=== PATIENT | female | born 1960 | race Caucasian/White ===

== ENCOUNTER 2020-05-28 11:18 | Outpatient (CLI) | payer BC, SELFPAY ==
--- NOTE | ~2020-05-28 | XR_ITS ---
XR finger 1st LT min 2V 05/28/2020 11:56 Indication: Bilateral first finger pain. No recent trauma. Procedure: 4 views of each first finger Comparison: No prior studies for comparison. Findings: There is symmetric osteoarthritis of the first CMC and MCP joints. Small loose bodies or ad jacent to the interphalangeal joints bilaterally. No significant soft tissue abnormality. No acute fr acture or traumatic malalignment. 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 Reviewed, dictated and finalized at location A. 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
--- NOTE | ~2020-05-28 | XR_ITS ---
EXAMINATION: XR finger 1st RT min 2V EXAM DATE: 05/28/2020 11:57 INDICATION: No known recent injury provided at this time. Pain of the right 1st finger. TECHNIQUE: Right 1st finger frontal, lateral and oblique projections obtained and reviewed. There is no prior study for comparison. FINDINGS: There is mild to moderate right 1st carpometacarpal, mild interphalangeal primary osteoarth ritis. There are no bony erosions identified. There are no acute fractures or dislocations identifie d. There is no subcutaneous gas. The soft tissue is unremarkable. There are no radiopaque foreign bodies. IMPRESSION: Mild to moderate right 1st carpometacarpal, mild interphalangeal osteoarthritis. Reviewed, dictated and finalized at location B. IMPRESSION: Mild to moderate right 1st carpometacarpal, mild interphalangeal os teoarthritis.
== END 2020-05-28 11:19 | disposition home or self-care (01) ==
PROVIDERS: PCP Family Medicine; Visit Provider Physician Assistant
DX: M19.041 Primary osteoarthritis, right hand (principal); M19.042 Primary osteoarthritis, left hand
CPT/HCPCS: 73140

== ENCOUNTER 2020-06-26 03:36 | Outpatient (CLI) | payer BC, SELFPAY ==
[2020-06-26 19:05] LABS: SARS-CoV-2 RNA PCR Negative
== END 2020-06-26 03:37 | disposition home or self-care (01) ==
LOC: ANHCOVIDDT 03:36
PROVIDERS: PCP Family Medicine; Visit Provider Internal Medicine Gastroenterology
DX: Z01.812 Encounter for preprocedural laboratory examination (principal); Z20.828 Contact with and (suspected) exposure to other viral communicable diseases
CPT/HCPCS: 87635; C9803; U0003

== ENCOUNTER 2020-06-28 00:53 | Day surgery (SDC) | payer BC, SELFPAY ==
[2020-06-24 08:42] VITALS: BMI 26.6
[2020-06-28 09:43] VITALS: BP 123/92; PULSE 85; RESP 16; TEMP 36.2; O2SAT 100
[2020-06-28 09:44] VITALS: BMI 26.9
[2020-06-28] MEDS: LACTATED RINGERS 1,000 ML 150 ML IV CONT (09:52)
--- NOTE | 2020-06-28 09:53 | WPDANESEPPF ---
Anes - Initial Pre Proc Eval Procedure: Operation Date: 06/28/20 10:30 Proposed Procedures p Screening Colonoscopy - Uriah Cano MD Date/Time: 06/28/20 09:53 Surgeon: Uriah Cano MD Pre Op Diagnosis: neoplasm screening Patient Data Age: 60 Gender: F Height: 1.7 m Weight: 78 kg Last Vital Signs Temp 36.2 C L 06/28/20 09:43 Pulse 85 06/28/20 09:43 Resp 16 06/28/20 09:43 BP 123/92 H 06/28/20 09:43 Pulse Ox 100 06/28/20 09:43 Allergies Allergy/AdvReac Type Severity Reaction Status Date / Time Sulfa (Sulfonamide Allergy Unknown Unknown Verified 06/28/20 09:40 Antibiotics) Home Medications Medication Instructions Recorded Confirmed Type cetirizine 10 mg tablet 10 mg PO DAILY 05/08/20 06/28/20 History cholecalciferol (vitamin D3) 125 mcg PO DAILY 06/28/20 06/28/20 History Patient hx anesthesia problems: none Family hx anesthesia problems: none PMFSH Past Medical History Medical History (Updated 06/28/20 @ 09:53 by John Poe MD) Mixed hyperlipidemia Overweight Surgical History Surgical History (Updated 05/08/20 @ 11:34 by Elis Underwood CMA) Hx of breast reduction, elective (~2017) Family History Family History (Updated 11/23/17 @ 09:19 by DOCTOR UNKNOWN) Mother Diabetes mellitus Hypertension Patient's mother is Father Patient's father is Social History Social History Smoking status: Never smoker Alcohol intake: current Substance use type: does not use Living arrangements: with family Gender identity (if verbalized by the patient): Female Spiritual care concerns: No Anes - Eval Final PreProcedure Day of Procedure 06/28/20 09:53 Patient weight: overweight Heart: regular rate and rhythm Lungs: clear to auscultation and normal air movement Airway: Mallampati scale class II Neurological: alert and oriented Last oral intake: >/= 8 hours ASA classification: II Emergent: no Anesthetic plan: proceed Anesthesia type and monitoring: general GIVS Informed Consent: The patient's anesthetic plan and its attendant risks and benefits were discussed with the patient/family/POA. Questions were solicited and answers provided to the satisfaction of the patient/family/POA.
--- NOTE | 2020-06-28 10:12 | WPDGICN ---
Assessment and Plan Assessment and plan (1) Encounter for screening colonoscopy: Code(s): Z12.11 - Encounter for screening for malignant neoplasm of colon Status: Acute Assessment and Plan: Patient has a history of a nodule in the colon. Plan is for surveillance colonoscopy at this time. High-fiber diet advised. Further recommendations will be given after endoscopy. GI Consult Note Consult date/time: 06/28/20 10:13 HPI: Naty Paul is a 60 year old female Seen in evaluation at the request of Dr. Jacob Harris. Patient presents for neoplasia screening. Current weight appetite bowel movements are normal. Family history noncontributory. Patient reports having colonoscopy 7 years ago. Was told she had a nodule . it was recommended that this be followed up. Patient denies any weight loss, bleeding, or pain. Review of Systems Review of Systems: All systems reviewed & are unremarkable except as noted in HPI and below PMFSH Past Medical History Medical History (Updated 06/28/20 @ 10:14 by Uriah Cano MD) Mixed hyperlipidemia Overweight Surgical History Surgical History (Updated 05/08/20 @ 11:34 by Elis Underwood CMA) Hx of breast reduction, elective (~2018) Family History Family History (Updated 11/23/17 @ 09:19 by DOCTOR UNKNOWN) Mother Diabetes mellitus Hypertension Patient's mother is Father Patient's father is Social History Social History Smoking status: Never smoker Alcohol intake: current Substance use type: does not use Living arrangements: with family Gender identity (if verbalized by the patient): Female Spiritual care concerns: No Meds Home Medications and Allergies Home Medications Medication Instructions Recorded Confirmed Type cetirizine 10 mg tablet 10 mg PO DAILY 05/08/20 06/28/20 History cholecalciferol (vitamin D3) 125 mcg PO DAILY 06/28/20 06/28/20 History Allergies Allergy/AdvReac Type Severity Reaction Status Date / Time Sulfa (Sulfonamide Allergy Unknown Unknown Verified 06/28/20 09:40 Antibiotics) Vital Signs Vital Signs - 24 hr 06/28/20 09:43 Temperature 97.2 F L Pulse Rate 85 Respiratory Rate 16 Blood Pressure 123/92 H Pulse Oximetry 100 Exam Narrative: Exam Narrative: Physical exam reveals Vital Signs to be stable. HEENT exam unremarkable. Lungs are clear to auscultation and percussion. Heart is without murmur or extra sounds. Abdominal exam bowel sounds are present soft nontender with no organomegaly. Digital external rectal exam normal.
[2020-06-28 10:39] VITALS: BP 99/72; PULSE 74; RESP 23; O2SAT 98
[2020-06-28 10:49] VITALS: BP 108/80; PULSE 71; RESP 22; O2SAT 100
[2020-06-28 10:59] VITALS: BP 112/78; PULSE 65; RESP 14; O2SAT 100
== END 2020-06-28 11:18 | disposition home or self-care (01) ==
PROVIDERS: PCP Family Medicine; Visit Provider Internal Medicine Gastroenterology
PROC: 0DJD8ZZ Inspection of Lower Intestinal Tract, Via Natural or Artificial Opening Endoscopic (ICD-10-PCS; CPT 45378; principal; 2020-06-28 10:30)
DX: Z12.11 Encounter for screening for malignant neoplasm of colon (principal); K64.8 Other hemorrhoids; E78.2 Mixed hyperlipidemia; E66.3 Overweight
CPT/HCPCS: 45378; J2704; J7120

== ENCOUNTER 2020-07-29 06:55 | Outpatient (NON) | payer BC, SELFPAY ==
[2020-07-29 20:58] LABS: SARS-CoV-2 RNA PCR Negative
== END 2020-07-29 06:56 ==
LOC: ANHCOVIDDT 07:24
PROVIDERS: PCP Family Medicine; Visit Provider Family Medicine
DX: Z20.828 Contact with and (suspected) exposure to other viral communicable diseases (principal); R09.89 Other specified symptoms and signs involving the circulatory and respiratory systems
CPT/HCPCS: 87635; C9803; U0003

== ENCOUNTER → 2021-04-29 03:17 | Outpatient (CLI) | payer BC, SELFPAY ==
[2021-04-29 19:42] LABS: SARS-CoV-2 RNA PCR Positive
== END ==
PROVIDERS: PCP Family Medicine; Visit Provider Family Medicine
DX: U07.1 COVID-19 (principal)
CPT/HCPCS: C9803; U0003; U0005

== ENCOUNTER 2021-05-22 16:01 | Emergency (ER) | payer BC, SELFPAY ==
--- NOTE | ~2021-05-22 | XR_ITS ---
EXAMINATION: XR foot RT min 3V DATE: 05/22/2021 16:33 INDICATION: Right foot pain TECHNIQUE: Dorsoplantar, lateral, and 2 oblique views of the right foot were obtained. COMPARISON: None. FINDINGS: There is dorsal soft tissue swelling overlying the distal metatarsals. Bone alignment is no rmal. There is no fracture. There is mild osteoarthritis of several interphalangeal joints. IMPRESSION: 1. Soft tissue swelling without acute osseous abnormality. Reviewed, dictated and finalized at location A.
[2021-05-22 16:06] VITALS: BP 135/81; PULSE 86; RESP 16; TEMP 37.1; O2SAT 100
--- NOTE | 2021-05-22 16:12 | ED.WOUNDLAC ---
HPI - Wound/Laceration General Chief Complaint: Wound/Laceration Stated Complaint: INJURED R FOOT Time Seen by Provider: 05/22/21 16:10 Source: patient and RN notes reviewed Mode of arrival: ambulatory Limitations: no limitations History of Present Illness HPI narrative: 61-year-old female presents concern for injury to the dorsal aspect of the right foot. Reports just prior to arrival she dropped it clothes iron on the foot, causing a laceration. She also reports musculoskeletal pain pain beneath the laceration. Reports she is not up-to-date on her tetanus vaccination. She denies any distal decrease sensation, strength, range of motion. Extremity Location: Right: foot Related Data Home Medications Medication Instructions Recorded Confirmed cholecalciferol (vitamin D3) 125 mcg PO DAILY 06/28/20 05/22/21 Allergies Allergy/AdvReac Type Severity Reaction Status Date / Time Sulfa (Sulfonamide Allergy Unknown Unknown Verified 05/22/21 16:06 Antibiotics) Review of Systems Review of Systems: CONSTITUTIONAL: Denies malaise, chills, sweats, or fever. SKIN: Reports laceration to the dorsal aspect of right foot MUSCULOSKELETAL: Reports right midfoot pain worsening with weightbearing NEUROLOGIC: Denies numbness, weakness All systems reviewed & are unremarkable except as noted in HPI and below PMFSH Past Medical History Medical History (Updated 05/22/21 @ 16:43 by Eleni Perez NP) Hematuria, unspecified Micromastia Mixed hyperlipidemia Mixed hyperlipidemia Other microscopic hematuria Overweight Unspecified vitamin D deficiency Surgical History Surgical History (Updated 05/08/20 @ 11:34 by Elis Underwood CMA) Hx of breast reduction, elective (~2018) Family History Family History (Updated 11/23/17 @ 09:19 by DOCTOR UNKNOWN) Mother Diabetes mellitus Hypertension Patient's mother is Father Patient's father is Social History Social History Smoking status: Never smoker Alcohol intake: current Substance use type: does not use Gender identity (if verbalized by the patient): Female Spiritual care concerns: No Comments At time of signature, agree with nursing past medical, surgical, social and family history. There is no relevant family history pertinent to the presenting complaint Exam Narrative: GENERAL: Well-appearing, well-nourished, and in no acute distress. HEAD: Normocephalic, atraumatic. EYES: PERRLA, conjunctivae clear NECK: Supple. CHEST: Speaks in full sentences. No respiratory distress. HEART: Regular rate and rhythm. Normal and equal peripheral pulses. EXTREMITIES: Right foot, digits of right foot have normal strength and sensation, normal range of motion. No edema or ecchymosis. 5/5 strength with digit flexion and extension. Normal sensation with sensitivity to light touch and pain. Midfoot dorsal tenderness. No no skin tenting, no devitalized tissue or atrophy, no trophic changes, no obvious deformity, alignment normal, nearby joints and structures intact. Distal pulses palpable and equal bilaterally, skin warm, dry, pink. Capillary refill less than 3 seconds. SKIN: Warm, dry, no rash. 1 cm linear laceration into the subcutaneous tissue noted to the dorsal aspect of the right foot above the second metatarsal NEURO: Alert and oriented x3. PSYCH: Normal mood and affect Course Course Emergency Course: Patient is aware of diagnosis, understands and agrees to treatment plan. Anticipatory guidance given. Patient agrees to follow-up as directed and is aware of reasons to seek care at the emergency department. Portions of this record may have been created with voice recognition software Vital Signs Vital signs: Vital Signs Temperature 98.7 F 05/22/21 16:06 Pulse Rate 86 05/22/21 16:06 Respiratory Rate 16 05/22/21 16:06 Blood Pressure 135/81 05/22/21 16:06 Pulse Oximetry
[2021-05-22] MEDS: TETANUS,DIPHTHERIA,AC PERTUSSIS ADULT (0.5 ML) BOOSTRIX IM (16:33)
== END 2021-05-22 16:56 | disposition home or self-care (01) ==
PROVIDERS: Emergency Provider Nurse Practitioner; PCP Emergency Medicine
DX: S91.311A Laceration without foreign body, right foot, initial encounter (principal); S90.31XA Contusion of right foot, initial encounter; E78.2 Mixed hyperlipidemia; Z23 Encounter for immunization; W20.8XXA Other cause of strike by thrown, projected or falling object, initial encounter
CPT/HCPCS: 12001; 73630; 90471; 90715; 99213; G0463

== ENCOUNTER 2021-10-10 12:54 | Outpatient (CLI) | payer BC, SELFPAY ==
[2021-10-10 13:36] LABS: CRP < 0.5 mg/dL (<1.0)
[2021-10-10 13:53] LABS: Erythrocyte Sedimentation Rate 15 mm/hr (0-20)
== END 2021-10-10 12:55 | disposition home or self-care (01) ==
PROVIDERS: PCP Family Medicine; Visit Provider Nurse Practitioner
DX: M79.641 Pain in right hand (principal); M79.642 Pain in left hand
CPT/HCPCS: 36415; 85652; 86140

== ENCOUNTER 2022-01-08 11:27 | Outpatient (CLI) | payer BC, SELFPAY ==
[2022-01-08 12:08] LABS: Basophils Percent Auto 0.6 % (0.2-1.2); Eosinophils Absolute Auto 0.3 K/mm3 (0-0.3); Eosinophils Percent Auto 5.8 % (0-4.4); Hematocrit 39.9 % (37.0-47.0); Hemoglobin 12.3 g/dL (12.0-15.0); Immature Granulocyte Absolute 0.01 K/mm3 (0.00-0.031); Immature Granulocyte Percent A 0.2 % (0-0.5); Lymphocytes Absolute Auto 1.86 K/mm3 (0.9-3.2); Lymphocytes Percent Auto 37.3 % (18.3-44.2); Mean Corpuscular HGB Conc 30.8 g/dl (32-36); Mean Corpuscular Hemoglobin 28.2 pg (26-34); Mean Corpuscular Volume 91.5 fl (80-100); Mean Platelet Volume 10.2 fl (7.4-10.4); Monocytes Absolute Auto 0.4 K/mm3 (0.1-0.6); Monocytes Percent Auto 8.2 % (2.6-8.5); Neutrophils Absolute Auto 2.4 K/mm3 (1.3-6.7); Neutrophils Percent Auto 47.9 % (45.5-73.1); Platelet Count Result 205 k/mm3 (150-375); Red Blood Count 4.36 M/mm3 (4.2-5.4); Red Cell Distribution Width 12.8 % (11.5-14.5)
[2022-01-08 12:17] LABS: Alanine Aminotransferase 17 U/L (4-35); Albumin Level 4.7 g/dL (3.5-5.1); Alkaline Phosphatase 74 U/L (38-126); Anion Gap 5 mmol/L (8-16); Aspartate Amino Transferase 29 U/L (14-36); Bilirubin,Total 0.5 mg/dL (0.2-1.3); Blood Urea Nitrogen 16 mg/dL (7-17); Carbon Dioxide 29 mmol/L (22-30); Chloride 103 mmol/L (98-107); Cholesterol 279 mg/dL (0-200); Estimated Glomerular Filt Rate > 60; Glucose 102 mg/dL (65-110); HDL Direct 49 mg/dL; Potassium 4.4 mmol/L (3.4-5.0); Sodium 137 mmol/L (137-145); Triglycerides 110 mg/dL (<150)
[2022-01-08 12:28] LABS: LDL Cholesterol Direct 185 mg/dL
[2022-01-12 14:07] LABS: Vitamin D 1,25 (OH)2 Total 28 pg/mL (18-72); Vitamin D2 1,25 (OH)2 <8 pg/mL; Vitamin D3 1,25 (OH)2 28 pg/mL
== END 2022-01-08 11:28 | disposition home or self-care (01) ==
LOC: ANHLAB 11:29
PROVIDERS: PCP Family Medicine; Visit Provider Physician Assistant
DX: E78.2 Mixed hyperlipidemia (principal); E55.9 Vitamin D deficiency, unspecified; Z79.899 Other long term (current) drug therapy
CPT/HCPCS: 36415; 80053; 80061; 82652; 84443; 85025

== ENCOUNTER 2022-08-10 11:53 | Outpatient (CLI) | payer BC, SELFPAY ==
--- NOTE | ~2022-08-10 | DEXA_ITS ---
Bone Density Report Name: AI URRUTIA Age: 62 Sex: Female Ethnicity: White Date of : 1960 Indication: postmenopausal; screening for osteoporosis; parental hip fracture; history of glucocorticoids; Referring Provider: JONNA MCCURDY Study: Bone densitometry was performed. Exam Date: August 10, 2022 Accession number: [id number] Bone Density: Region BMD T-score Z-score Classification AP Spine(L1-L4) 0.985 -0.6 0.9 Normal Femoral Neck (Left) 0.659 -1.7 -0.4 Osteopenia Total Hip (Left) 0.835 -0.9 0.1 Normal Femoral Neck (Right) 0.600 -2.2 -0.9 Osteopenia Total Hip (Right) 0.789 -1.3 -0.3 Osteopenia Total Hip Mean 0.812 -1.1 -0.1 Osteopenia World Health Organization criteria for BMD impression classify patients as: Normal (T-score at or above -1.0), Osteopenia (T-score between -1.0 and -2.5), or Osteoporosis (T-score at or below -2.5). 10-year Fracture Risk(1): Major Osteoporotic Fracture 29% Hip Fracture 2.7% Reported Risk Factors: [place] (), Neck BMD=0.600, BMI=27.1, parental fracture, glucocorticoids (1) FRAX(R) Version 3.08. Fracture probability calculated for an untreated patient. Fracture probability may be lower if the patient has received treatment. Clinical Information Provided by Patient: Parent has had a hip fracture Has taken Glucocorticoids Has used the following medications: Vitamin D, Calcium Patient maximum height was 68 Menopause Age: 55 Drinks caffeinated beverages Onset of menses at age 17 Number of children 2 Impression: The patient has low bone mass, based on the Right Femoral Neck T-score. The patient has an estimated ten-year risk of hip fracture of 2.7% and an estimated ten-year risk of major fracture of 29%, based on the WHO FRAX algorithm. The patient has risk factors, including: parental hip fracture, history of glucocorticoid therapy. Discussion: BONE DENSITY IS LOW AT ONE OR MORE SKELETAL SITES. THE PATIENT'S BMD AND CLINICAL RISK FACTORS CONTRIBUTE TO THIS PATIENT'S INCREASED RISK OF FRACTURE. This patient's lowest T-score is low at one or more skeletal sites. It meets the World Health Organization's (WHO) criteria for ?low bone mass? (T-score between -1.0 and -2.5). The patient's 10-year risk of a major osteoporotic fracture as calculated by FRAX exceeds the threshold where pharmacological therapy is recommended by the National Osteoporosis Foundation (NOF). However, all treatment decisions require clinical judgment and consideration of individual patient factors, including patient preferences, comorbidities, previous drug use, risk factors not captured in the FRAX model (e.g., frailty, falls, vitamin D deficiency, increased bone turnover, interval significant decline in bone density) and possible under or overestimation of fractur
== END 2022-08-10 11:54 | disposition home or self-care (01) ==
PROVIDERS: PCP Family Medicine; Visit Provider Physician Assistant
DX: M85.852 Other specified disorders of bone density and structure, left thigh (principal); M85.851 Other specified disorders of bone density and structure, right thigh
CPT/HCPCS: 77080

== ENCOUNTER 2022-08-11 09:50 | Outpatient (CLI) | payer BC, SELFPAY ==
[2022-08-11 11:15] LABS: Cholesterol 178 mg/dL (0-200); HDL Direct 44 mg/dL; Triglycerides 134 mg/dL (<150)
[2022-08-11 11:26] LABS: LDL Cholesterol Direct 100 mg/dL
[2022-08-11 11:52] LABS: Vitamin D 25 Hydroxy 46.9 ng/mL
== END 2022-08-11 09:51 | disposition home or self-care (01) ==
LOC: ANHLAB 09:51
PROVIDERS: PCP Family Medicine; Visit Provider Physician Assistant
DX: E78.2 Mixed hyperlipidemia (principal); E55.9 Vitamin D deficiency, unspecified
CPT/HCPCS: 36415; 80061; 82306

== ENCOUNTER 2023-02-08 08:42 | Outpatient (CLI) | payer OTHER, SELFPAY ==
[2023-02-08 09:00] LABS: Basophils Percent Auto 0.6 % (0.2-1.2); Eosinophils Absolute Auto 0.3 K/mm3 (0-0.3); Eosinophils Percent Auto 5.9 % (0-4.4); Hematocrit 40.9 % (37.0-47.0); Immature Granulocyte Absolute 0.01 K/mm3 (0.00-0.031); Immature Granulocyte Percent A 0.2 % (0-0.5); Lymphocytes Absolute Auto 1.72 K/mm3 (0.9-3.2); Lymphocytes Percent Auto 34.9 % (18.3-44.2); Mean Corpuscular HGB Conc 31.8 g/dl (32-36); Mean Corpuscular Hemoglobin 29.1 pg (26-34); Mean Corpuscular Volume 91.5 fl (80-100); Mean Platelet Volume 9.6 fl (7.4-10.4); Monocytes Absolute Auto 0.4 K/mm3 (0.1-0.6); Monocytes Percent Auto 7.3 % (2.6-8.5); Neutrophils Absolute Auto 2.5 K/mm3 (1.3-6.7); Neutrophils Percent Auto 51.1 % (45.5-73.1); Platelet Count Result 199 k/mm3 (150-375); Red Blood Count 4.47 M/mm3 (4.2-5.4); Red Cell Distribution Width 12.5 % (11.5-14.5); White Blood Count 4.9 K/mm3 (4.5-10.0)
[2023-02-08 09:12] LABS: Alanine Aminotransferase 26 U/L (6-35); Albumin Level 4.7 g/dL (3.5-5.1); Alkaline Phosphatase 69 U/L (38-126); Anion Gap 5 mmol/L (8-16); Aspartate Amino Transferase 32 U/L (14-36); Bilirubin,Total 0.8 mg/dL (0.2-1.3); Blood Urea Nitrogen 13 mg/dL (7-17); Calcium 9.1 mg/dL (8.4-10.2); Carbon Dioxide 31 mmol/L (22-30); Chloride 102 mmol/L (98-107); Cholesterol 171 mg/dL (0-200); Estimated Glomerular Filt Rate > 60; Glucose 102 mg/dL (65-110); HDL Direct 53 mg/dL; Potassium 4.5 mmol/L (3.4-5.0); Sodium 138 mmol/L (137-145); Triglycerides 132 mg/dL (<150)
[2023-02-08 09:22] LABS: LDL Cholesterol Direct 91 mg/dL
== END 2023-02-08 08:43 | disposition home or self-care (01) ==
PROVIDERS: PCP Family Medicine; Visit Provider Physician Assistant
DX: E78.2 Mixed hyperlipidemia (principal)
CPT/HCPCS: 36415; 80053; 80061; 82306; 84443; 85025

== ENCOUNTER 2024-03-14 10:11 | Outpatient (CLI) | payer SELFPAY ==
[2024-03-14 13:13] LABS: Basophils Percent Auto 0.6 % (0.2-1.2); Eosinophils Absolute Auto 0.3 K/mm3 (0-0.3); Eosinophils Percent Auto 5.3 % (0-4.4); Hematocrit 38.3 % (37.0-47.0); Hemoglobin 12.3 g/dL (12.0-15.0); Immature Granulocyte Absolute 0.01 K/mm3 (0.00-0.031); Immature Granulocyte Percent A 0.2 % (0-0.5); Lymphocytes Absolute Auto 1.88 K/mm3 (0.9-3.2); Lymphocytes Percent Auto 38.7 % (18.3-44.2); Mean Corpuscular HGB Conc 32.1 g/dl (32-36); Mean Corpuscular Hemoglobin 28.9 pg (26-34); Mean Corpuscular Volume 90.1 fl (80-100); Mean Platelet Volume 10.2 fl (7.4-10.4); Monocytes Absolute Auto 0.3 K/mm3 (0.1-0.6); Neutrophils Absolute Auto 2.3 K/mm3 (1.3-6.7); Neutrophils Percent Auto 48.2 % (45.5-73.1); Platelet Count Result 188 k/mm3 (150-375); Red Blood Count 4.25 M/mm3 (4.2-5.4); Red Cell Distribution Width 12.5 % (11.5-14.5); White Blood Count 4.9 K/mm3 (4.5-10.0)
[2024-03-14 13:19] LABS: Alanine Aminotransferase 20 U/L (6-35); Albumin Level 4.4 g/dL (3.5-5.1); Alkaline Phosphatase 75 U/L (38-126); Anion Gap 5 mmol/L (4-12); Aspartate Amino Transferase 42 U/L (14-36); Bilirubin,Total 0.7 mg/dL (0.2-1.3); Blood Urea Nitrogen 11 mg/dL (7-17); Calcium 9.2 mg/dL (8.4-10.2); Carbon Dioxide 30 mmol/L (22-30); Chloride 106 mmol/L (98-107); Cholesterol 164 mg/dL (0-200); Estimated Glomerular Filt Rate > 60; Glucose 101 mg/dL (65-110); HDL Direct 47 mg/dL; Potassium 4.3 mmol/L (3.4-5.0); Sodium 141 mmol/L (137-145); Triglycerides 122 mg/dL (<150)
[2024-03-14 13:31] LABS: LDL Cholesterol Direct 96 mg/dL
[2024-03-14 13:36] LABS: Vitamin D 25 Hydroxy 46.5 ng/mL
[2024-03-14 14:00] LABS: Erythrocyte Sedimentation Rate 13 mm/hr (0-20)
[2024-03-15 12:14] LABS: ANA Cascade Screen NEGATIVE (NEGATIVE)
== END 2024-03-14 10:12 | disposition home or self-care (01) ==
LOC: ANHGOSHLAB 10:13
PROVIDERS: PCP Family Medicine; Visit Provider Family Medicine
DX: M54.41 Lumbago with sciatica, right side (principal); M85.80 Other specified disorders of bone density and structure, unspecified site; Z79.899 Other long term (current) drug therapy; E78.2 Mixed hyperlipidemia; E55.9 Vitamin D deficiency, unspecified
CPT/HCPCS: 36415; 80053; 80061; 82306; 84443; 85025; 85652; 86038; 86225; 86235; 86364